=== PATIENT | male | born 1945 | race Caucasian/White ===

== ENCOUNTER → 2021-01-29 13:19 | Outpatient (CLI) | payer OTHER, SELFPAY | PROVIDERS: PCP Family Medicine; Visit Provider Nurse Practitioner | DX: Z20.822 Contact with and (suspected) exposure to COVID-19 (principal) | CPT/HCPCS: C9803; U0003; U0005 ==

== ENCOUNTER → 2021-10-20 09:50 | Outpatient (CLI) | payer MEDICARE, SELFPAY ==
--- NOTE | 2021-10-20 09:53 | CA_ITS ---
APPROVED REPORT EXAM: Comprehensive 2D, Doppler, and color-flow Echocardiogram [employer] Maintainer: Kathi Madison RVT Ht: 6 ft 3 in Wt: 280lbs BSA: 2.53 BP: 134/84 mmHg Indications: EDEMA,SOA 2D Dimensions LVOT 2.49 cm (M/F) 1.5-2.5 LA Volume 89.90 mL LA Volume Index 35.53 mL/m2 (M/F) 16-34 M-Mode Dimensions RVDd 2.71 cm (0.9-2.6) LA Diam 3.63 cm (1.9-4.0) LVDd 6.07 cm (3.5-5.7) Ao Diam 3.45 cm (2.0-3.7) LVDs 4.64 cm (3.5-5.7) IVSd 1.03 cm (0.6-1.1) PWd 0.73 cm (0.6-1.1) EF (Teich) 46.30% FS 23.60% EDV (Teich) 184.80 mL TAPSE 3.01 (<1.7) ESV (Teich) 99.30 mL LV Diastology E Decel Time 117.00 (160-240 msec) E/A Ratio 2.0 MED E' 6.40 (< 7 cm/sec) E'/MED E' Ratio 11.67 (>14) LAT E' 8.30 (<10 cm/sec) E/LAT E' Ratio 9.00 (>14) Aortic Valve AO Peak GR. 3.60 mmHg Mitral Valve MV E Max Kael. 75.00 (40-130 cm/s) MV A Velocity 37.00 (40-130 cm/s) E/A Ratio 2.04 MV Decel. Time 117.00 (160-240 ms) MV PHT 34.00 ms Pulmonary Valve PV Peak Velocity 71.00 (50-150 cm/s) Tricuspid Valve TR P. Velocity 371.00 cm/s RAP Estimate 10.00 mmHg RVSP 65.00 mmHg Left Ventricle Technically difficult study because of the patient factors and poor acoustic windows, repeat study with Definity contrast is recommended. Left atrium is mildly enlarged, left ventricle is normal size mild concentric left ventricular hypertrophy, estimated ejection fraction approximately 30%, there appears to be mild hypokinesis involving the inferior inferolateral and posterolateral wall. Diastolic parameters are inconclusive. Right Ventricle Right atrium and right ventricle mildly enlarged with normal contractility. Aortic Valve Aortic valve is thickened and calcified without Doppler evidence of aortic stenosis aortic insufficiency. Mitral Valve Mitral valve leaflets are minimally thickened, there is mild mitral regurgitation. Tricuspid Valve Tricuspid valve grossly normal, there is mild tricuspid regurgitation, tricuspid regurgitation jet velocity is inadequate for calculation of the right ventricular systolic pressure. Pulmonic Valve Pulmonic valve is poorly visualized. Great Vessels Aortic root is normal size. Inferior vena cava normal size with normal inspiratory collapse. Pericardium No significant pericardial effusion noted. Conclusion 1. Technically difficult study because of the patient factors and poor acoustic windows. Repeat study with Definity contrast is recommended, normal left ventricular size mild concentric left ventricular hypertrophy, estimated ejection fraction is likely 30% with segmental wall motion abnormality described above, diastolic parameters are inconclusive. 2. Mild mitral and tricuspid regurgitation. 3. No significant pericardial effusion. 4. Inferior vena cava is normal size with normal inspiratory collapse. Electronically signed by : Arthur Caba MD 10/20/2021 19:51:36
== END ==
PROVIDERS: PCP Family Medicine; Visit Provider Family Medicine
DX: R60.0 Localized edema (principal); G47.33 Obstructive sleep apnea (adult) (pediatric); R06.83 Snoring
CPT/HCPCS: 93306; G0399

== ENCOUNTER 2021-11-25 13:00 | Outpatient (RCR) | payer MEDICARE, SELFPAY | END 2022-01-12 14:00 | disposition home or self-care (01) | LOC: PT 13:00 | PROVIDERS: Visit Provider Nurse Practitioner | DX: I25.10 Atherosclerotic heart disease of native coronary artery without angina pectoris (principal) | CPT/HCPCS: 93798 ==

== ENCOUNTER → 2022-01-18 20:07 | Outpatient (CLI) | payer MEDICARE, SELFPAY ==
--- NOTE | 2022-01-19 11:50 | PC.NURSE ---
Patient here for in lab sleep study - however as patient was being patient support associate - and clinical dental technician went into another room - patient left without telling clinical dental technician. No charge to patient.
== END ==
PROVIDERS: PCP Family Medicine; Visit Provider Nurse Practitioner Family
DX: G47.33 Obstructive sleep apnea (adult) (pediatric) (principal)

== ENCOUNTER → 2022-04-08 09:33 | Outpatient (CLI) | payer MEDICARE, SELFPAY | PROVIDERS: PCP Family Medicine; Visit Provider Nurse Practitioner Family | DX: G47.33 Obstructive sleep apnea (adult) (pediatric) (principal); I50.9 Heart failure, unspecified; Z99.89 Dependence on other enabling machines and devices | CPT/HCPCS: 94762 ==